=== PATIENT | male | born 1955 | race African-American/Black ===

== ENCOUNTER → 2016-09-22 | Outpatient (CLI) | payer BC, OTHER ==
[2016-09-22 09:12] LABS: CH 27.9; HCT 46.1 % (39.0-53.0); HDW 2.25; HGB 14.6 gm/dL (13.0-17.5); MCH 28.6 pg (25.0-35.0); MCHC 31.6 g/dL (31.0-37.0); MCV 90.4 fL (80.0-100.0); RDW 14.5 % (11.5-15.5); WBC 6.6 k/uL (3.8-10.6)
[2016-09-22 10:23] LABS: ALT 29 U/L (21-72); AST 22 U/L (17-59); Alkaline Phosphatase 53 U/L (38-126); Anion Gap 8 mmol/L; Blood Urea Nitrogen 16 mg/dL (9-20); Calcium 9.7 mg/dL (8.4-10.2); Carbon Dioxide 29 mmol/L (22-30); Chloride 104 mmol/L (98-107); Cholesterol 198 mg/dL (<200); Glucose 89 mg/dL (74-99); HDL Cholesterol 59 mg/dL (40-60); Non-African American GFR(MDRD) >60 (>60 ml/min/1.73 sqM); Potassium 4.3 mmol/L (3.5-5.1); Sodium 141 mmol/L (137-145); Total Bilirubin 0.6 mg/dL (0.2-1.3); Total Protein 7.5 g/dL (6.3-8.2); Triglycerides 80 mg/dL (<150)
[2016-09-22 10:43] LABS: Prostate Specific Antigen 2.32 ng/mL (0.00-4.00)
== END | disposition home or self-care (01) ==
LOC: LABWHC1 08:02
PROVIDERS: ATTEND Internal Medicine
DX: J44.9 Chronic obstructive pulmonary disease, unspecified (principal); I10 Essential (primary) hypertension; I11.9 Hypertensive heart disease without heart failure; M54.5 Low back pain; N40.0 Benign prostatic hyperplasia without lower urinary tract symptoms
CPT/HCPCS: 36415; 80053; 80061; 84153; 84439; 84443; 85027

== ENCOUNTER → 2017-10-14 | Outpatient (CLI) | payer BC, OTHER ==
[2017-10-14 15:54] LABS: HCT 46.1 % (39.0-53.0); MCH 28.8 pg (25.0-35.0); MCHC 32.6 g/dL (31.0-37.0); MCV 88.4 fL (80.0-100.0); Mean Platelet Volume 7.6; Platelet Count 250 k/uL (150-450); RBC 5.22 m/uL (4.30-5.90); RDW 14.7 % (11.5-15.5); WBC 7.2 k/uL (3.8-10.6)
[2017-10-14 16:02] LABS: Appearance,Urine Clear (Clear); Bilirubin,Urine Negative (Negative); Blood,Urine Negative (Negative); Color,Urine Yellow; Glucose,Urine (UA) Negative (Negative); Ketones,Urine Negative (Negative); Leukocyte Esterase,Urine Negative (Negative); Nitrite,Urine Negative (Negative); PH, Urine 5.5 (5.0-8.0); Protein,Urine Negative (Negative); Specific Gravity,Urine 1.015 (1.001-1.035); Urobilinogen,Urine <2.0 mg/dL (<2.0)
[2017-10-14 16:13] LABS: Albumin 3.4 g/dL (3.5-5.0); Calcium 9.4 mg/dL (8.4-10.2); Potassium 4.4 mmol/L (3.5-5.1); Total Bilirubin 0.2 mg/dL (0.2-1.3); Total Protein 5.9 g/dL (6.3-8.2)
[2017-10-14 16:31] LABS: T4, Free (Free Thyroxine) 0.95 ng/dL (0.78-2.19)
[2017-10-14 16:45] LABS: Prostate Specific Antigen 2.36 ng/mL (0.00-4.00)
--- NOTE | 2017-10-15 09:44 | XR ---
EXAMINATION TYPE: XR chest 2V DATE OF EXAM: 10/14/2017 COMPARISON: 02/10/2013 TECHNIQUE: PA and lateral views submitted. HISTORY: Physical exam FINDINGS: The lungs are clear and there is no pneumothorax, pleural effusion, or focal pneumonia. Heart size mildly prominent. No overt failure. Arthropathy shoulders hypertrophic and degenerative change of the spine. IMPRESSION: 1. No acute process.
== END | disposition home or self-care (01) ==
LOC: LABWHC1 15:21
PROVIDERS: ATTEND Internal Medicine
DX: J44.9 Chronic obstructive pulmonary disease, unspecified (principal); K21.0 Gastro-esophageal reflux disease with esophagitis; E78.2 Mixed hyperlipidemia; N40.0 Benign prostatic hyperplasia without lower urinary tract symptoms; R35.0 Frequency of micturition; M54.5 Low back pain
CPT/HCPCS: 36415; 71046; 80053; 80061; 81003; 82272; 84153; 84439; 84443; 85027

== ENCOUNTER → 2018-06-04 | Outpatient (CLI) | payer BC, OTHER ==
--- NOTE | 2018-06-04 13:22 | XR ---
EXAMINATION TYPE: XR knee complete RT DATE OF EXAM: 06/04/2018 COMPARISON: NONE HISTORY: Pain TECHNIQUE: Four views are submitted. FINDINGS: Arthropathy of the patellofemoral joint and medial compartment knee joint with small hypertrophic spu rs. There is a suprapatellar bursal fluid collection. Osseous structures are intact. No acute fractu re seen. IMPRESSION: 1. There is a suprapatellar bursal fluid collection. Findings compatible with mild osteoarthritis.
== END | disposition home or self-care (01) ==
LOC: RADXRMAIN 11:51
PROVIDERS: ATTEND Internal Medicine
DX: M25.561 Pain in right knee (principal)

== ENCOUNTER → 2018-07-28 | Outpatient (CLI) | payer BC, OTHER ==
--- NOTE | 2018-07-28 22:44 | MR ---
EXAMINATION TYPE: MR knee RT wo con DATE OF EXAM: 07/28/2018 COMPARISON: NONE HISTORY: Right knee pain with Swelling and Limited ROM TECHNIQUE: Multiplanar, multisequence images of the knee is performed without IV contrast. FINDINGS: MEDIAL MENISCUS: Anterior and posterior horns are intact without tear. LATERAL MENISCUS: Anterior and posterior horns are intact without tear. CRUCIATE LIGAMENTS: The anterior and posterior cruciate ligaments are intact and unremarkable. COLLATERAL LIGAMENTS: The medial collateral ligament and lateral collateral ligament complex are inta ct and unremarkable. EXTENSOR MECHANISM: Visualized quadriceps and patellar tendons are intact. EFFUSION: There is small to moderate sized suprapatellar joint effusion. POPLITEAL CYST: No popliteal/krishnan cyst. TRICOMPARTMENT SPACES: There is moderate narrowing patellofemoral compartment. There is mild narrowin g medial lateral tibiofemoral compartments. Tibial condylar spurring is present. CARTILAGE: Chondromalacia patella is present as there is thinning of articular cartilage along the po sterior patellar pole. BONE MARROW SIGNAL: No focal abnormal marrow signal is appreciated. OTHER: No additional significant abnormality is appreciated. IMPRESSION: 1. No meniscal or ligamentous tear is seen. 2. Mild to moderate tricompartment degenerative changes most prominent patellofemoral compartment. 3. Small to moderate-sized suprapatellar joint effusion.
== END | disposition home or self-care (01) ==
LOC: RADMRIMAIN 17:08
PROVIDERS: ATTEND Orthopaedic Surgery
DX: M25.461 Effusion, right knee (principal); M25.861 Other specified joint disorders, right knee